=== PATIENT | male | born 2005 | race Caucasian/White ===

== ENCOUNTER 2025-05-24 00:48 | Emergency (ER) | payer OTHER ==
[2025-05-24] MEDS ORDERED: Acetaminophen 500 MG TAB ONE (01:14)
== END 2025-05-24 02:50 | disposition home or self-care (01) ==
LOC: CSHERS 00:48
DX: S06.0X0A Concussion without loss of consciousness, initial encounter (principal); W21.01XA Struck by football, initial encounter; Y92.169 Unspecified place in school dormitory as the place of occurrence of the external cause; Y93.61 Activity, american tackle football
CPT/HCPCS: 70450; 72125; Q0162